=== PATIENT | female | born 1960 | race Caucasian/White ===

== ENCOUNTER → 2022-05-13 | Outpatient (CLI) | payer BC | LOC: MAMMO 12:43 | DX: Z12.31 Encounter for screening mammogram for malignant neoplasm of breast (principal) ==

== ENCOUNTER → 2024-06-08 | Outpatient (CLI) | payer OTHER | LOC: MAMMO 08:42 | DX: Z12.31 Encounter for screening mammogram for malignant neoplasm of breast (principal); N63.25 Unspecified lump in the left breast, overlapping quadrants ==

== ENCOUNTER → 2024-06-14 | Outpatient (CLI) | payer OTHER | LOC: MAMMO 06:53 | DX: N60.12 Diffuse cystic mastopathy of left breast (principal) ==